=== PATIENT | male | born 1990 | race Caucasian/White ===

== ENCOUNTER 2017-01-29 11:49 | Emergency (ER) | payer OTHER ==
[2017-01-29 13:58] VITALS: BP 132/76
== END 2017-01-29 13:58 | disposition home or self-care (01) ==
LOC: ED 11:49
DX: S61.215A Laceration without foreign body of left ring finger without damage to nail, initial encounter (principal); W25.XXXA Contact with sharp glass, initial encounter; Y93.89 Activity, other specified; Y99.8 Other external cause status; Y92.89 Other specified places as the place of occurrence of the external cause
CPT/HCPCS: J2001

== ENCOUNTER 2017-02-07 13:05 | Emergency (ER) | payer OTHER ==
[~2017-02-07] VITALS: Ht 167.6 cm; Wt 128.4 kg
[2017-02-07 13:36] VITALS: BP 130/76
== END 2017-02-07 15:16 | disposition home or self-care (01) ==
LOC: ED 13:05
DX: S61.214D Laceration without foreign body of right ring finger without damage to nail, subsequent encounter (principal); X58.XXXD Exposure to other specified factors, subsequent encounter; Y99.8 Other external cause status; Y92.89 Other specified places as the place of occurrence of the external cause